=== PATIENT | male | born 1985 | race Caucasian/White ===

== ENCOUNTER 2020-07-09 06:55 | Day surgery (SDC) | payer BC ==
[2020-07-09] VITALS (7 sets, daily range): BP systolic 100–129; BP diastolic 51–80
[~2020-07-09] VITALS: Ht 185.4 cm; Wt 71.2 kg
--- NOTE | 2020-07-09 06:48 | Anethesia Preoperative Eval ---
Anesthesia Pre-op PMH/ROS General Date of Evaluation: Jul 09, 2020 Time of Evaluation: 06:45 Anesthesiologist: mikel ASA Score: ASA 3 Mallampati Score Class I : Soft palate, uvula, fauces, pillars visible Class II: Soft palate, uvula, fauces visible Class III: Soft palate, base of uvula visible Class IV: Only hard plate visible Mallampati Classification: Class II Surgeon: cristopher Diagnosis: esophagitis Surgical Procedure: egd Anesthesia History: none Social History: smoking - nonsmoker Family History: no anesthesia problems Allergies: Coded Allergies: No Known Allergies (Unverified , 07/06/20) Medications: see eMAR Patient NPO?: Yes Past Medical History Cardiovascular: Reports: arrhythmia Gastrointestinal/Genitourinary: Reports: GERD, other - urinary frequency HEENT: Reports: other - decreased visual acuity Hematology/Immune: Reports: other - covid-19 negative Anesthesia Pre-op Phys. Exam Physician Exam Last Vital Signs Date Time Temp Pulse Resp B/P (MAP) Pulse Ox O2 Delivery O2 Flow Rate FiO2 07/09/20 07:49 98.3 63 18 129/80 100 Room Air Constitutional: NAD Neurologic: CN 2-12 intact Cardiovascular: RRR Respiratory: CTA Gastrointestinal: S/NT/ND Airway Exam Mallampati Score: Class II MO: full Neck: flexible TMD: 2fb ROM: full Teeth: intact Anesthesia Pre-op A/P Labs Microbiology Date/Time Source Procedure Growth Status 07/06/20 11:25 Nasopharynx SARS-CoV-2 RdRp Gene Assay - Final Complete Risk Assessment & Plan Assessment: asa3 Plan: mac Status Change Before Surgery: No Pre-Antibiotics Drug: Jade Lal MD Jul 09, 2020 06:48
[~2020-07-09 06:55] MED LIST: Atropine Inj 1mg/10ml Syr IVP PRN; DiphenhydrAMINE 50mg/ml Inj IVP PRN; LR 1000ml 1,000 ML IVLG SCH; Midazolam 2mg/2ml Inj IVP PRN; OMEPRAZOLE40 M1 ORAL; TRUVADA 200 MG1 EAC1 ORAL; fentaNYL 100 mcg/2 mL IV PRN
[2020-07-09] MEDS ORDERED: LR 1000ml ONE (06:56)
[2020-07-09] MEDS ORDERED: Lidocaine 1% MPF 10mg/ml 5ml ONE (06:56)
[2020-07-09] MEDS ORDERED: LR 1000ml 1,000 ML IVLG SCH (07:00)
--- NOTE | 2020-07-09 08:21 | Pre-Procedure Note/Attestation ---
Pre-Procedure Note/Attestation Complete Prior to Procedure Planned Procedure: not applicable Procedure Narrative: Egd Indications for Procedure Pre-Operative Diagnosis: CP, GERD, Esophagitis Attestation I attest that I discussed the nature of the procedure; its benefits; risks and complications; and alternatives (and the risks and benefits of such alternatives), prior to the procedure, with the patient (or the patient's legal personal financial representative). I attest that, if there was a reasonable possibility of needing a blood transfusion, the patient (or the patient's legal personal financial representative) was given the [facility] standardized written summary, pursuant to the Mario Laz Blood Safety Act ([place] Health and Safety Code # 1645, as amended). I attest that I re-evaluated the patient just prior to the surgery and that there has been no change in the patient's H&P, except as documented below: Isaias Strong MD Jul 09, 2020 08:21
--- NOTE | 2020-07-09 08:21 | General Progress Note ---
Subjective Allergies: Coded Allergies: No Known Allergies (Unverified , 07/06/20) Objective Last 24 Hour Vital Signs Date Time Temp Pulse Resp B/P (MAP) Pulse Ox O2 Delivery O2 Flow Rate FiO2 07/09/20 07:49 98.3 63 18 129/80 100 Room Air 07/09/20 07:48 Room Air Height (Feet): 6 Height (Inches): 1 Weight (Pounds): 157 Assessment/Plan Assessment/Plan: See H&P Isaias Strong MD Jul 09, 2020 08:21
--- NOTE | 2020-07-09 08:40 | Endoscopy Procedure Note ---
Endoscopy Procedure Note General Indication for Procedure: GERD CP esophagitis Procedures Performed: EGD Operative Findings/Diagnosis: nl Specimen: yes Pt Tolerated Procedure Well: Yes Estimated Blood Loss: none Anesthesia Anesthesiologist: Lorenzo Tillman Anesthesia: MAC Medications Medication Given: see anesthesia record Inserted Devices Implant(s) used?: No GI Core Measures 50 yrs or older w/o bx or poly: Not Applicable 10yrs. F/U recommended: Not Applicable Isaias Strong MD Jul 09, 2020 08:39
--- NOTE | 2020-07-09 08:41 | Brief Operative Note ---
Immediate Post Operative Note Operative Note Chief Complaint: CP GERD Esophagitis Pre-op Diagnosis: CP, GERD, Esophagitis Procedure: EGD Bx Post-op Diagnosis: Nl Surgeon: Jesica Anesthesiologist: Lorenzo Tillman Specimen: yes Complications: none Condition: stable Fluids: Recorded Estimated Blood Loss: none Drains: none Implant(s) used?: No Isaias Strong MD Jul 09, 2020 08:41
--- NOTE | 2020-07-09 08:56 | Immediate Post-Op Evaluation ---
Immediate Post-Op Evalulation Immediate Post-Op Evalulation Procedure: egd w/bx Date of Evaluation: Jul 09, 2020 Time of Evaluation: 08:54 IV Fluids: 550ml lr Blood Products: none Estimated Blood Loss: negligible Blood Pressure Systolic: 109 Blood Pressure Diastolic: 59 Pulse Rate: 59 Respiratory Rate: 18 O2 Sat by Pulse Oximetry: 100 Temperature (Fahrenheit): 97.6 Pain Score (1-10): 0 Nausea: No Vomiting: No Complications none Patient Status: awake, reacts, patent Hydration Status: adequate Drug: Jade Lal MD Jul 09, 2020 08:56
--- NOTE | 2020-07-09 08:57 | 48 Hour Post Anesthesia Eval ---
Post Anesthesia Evaluation Procedure: egd w/bx Date of Evaluation: Jul 09, 2020 Time of Evaluation: 08:56 Blood Pressure Systolic: 106 0: 60 Pulse Rate: 57 Respiratory Rate: 18 Temperature (Fahrenheit): 97.6 O2 Sat by Pulse Oximetry: 100 Airway: patent Nausea: No Vomiting: No Pain Intensity: 0 Hydration Status: adequate Cardiopulmonary Status: stable Mental Status/LOC: patient returned to baseline Post-Anesthesia Complications: none Follow-up care needed: N/A Jade Chavez MD Jul 09, 2020 08:57
--- NOTE | 2020-07-09 09:30 | Operative Note - Dictated ---
DATE OF OPERATION: 07/09/2020 GASTROENTEROLOGY PROCEDURE REPORT PROCEDURE: Upper gastrointestinal endoscopy with biopsy. SURGEON: Isaias Strong MD ANESTHESIOLOGIST: Jade Leija MD PRE-ENDOSCOPIC DIAGNOSES: Symptoms of gastroesophageal reflux with chest pain and esophagitis. POST-ENDOSCOPIC DIAGNOSIS: Visually normal upper gastrointestinal endoscopy, status post biopsy as described below. DESCRIPTION OF PROCEDURE: The procedure, its risks, indications, alternatives, and possible complications were explained to the patient and an informed consent was obtained. Patient was then sedated in the left lateral decubitus position and a diagnostic upper endoscope was introduced through oropharynx and advanced to the duodenum without difficulty. The endoscope was then gradually withdrawn and mucosa examined carefully. Examination of the upper gastrointestinal mucosa did not reveal any visual abnormalities. Biopsies of the antrum, lower esophagus, and mid esophagus were sent to pathology for review. Specifically, there was no evidence of esophagitis or esophageal ulcers or other abnormalities that could explain the patient's symptoms. Patient was sent to recovery in good condition. COMPLICATIONS: None. ASSESSMENT: There were no abnormalities in this examination to explain the patient's symptoms. Biopsies will be evaluated to rule out microscopic disease. The patient can continue his proton pump inhibitor use daily for now. RECOMMENDATIONS: 1. Resume oral diet. 2. Continue Prilosec 20 mg daily. 3. Follow up biopsy results. 4. Outpatient followup. Thank you for asking me to participate in the care of this patient. Isaias Strong M.D. DR: MAG JOB#: [id number] CC: Cali Mcgee MD
== END 2020-07-09 09:40 | disposition home or self-care (01) ==
LOC: GAS 06:55
DX: K21.00 Gastro-esophageal reflux disease with esophagitis, without bleeding (principal); R07.9 Chest pain, unspecified
CPT/HCPCS: 43239; 94003; J2704; J7120; U0002; 94150